=== PATIENT | male | born 1980 | race Caucasian/White ===

== ENCOUNTER 2020-03-02 11:12 | Emergency (ER) | payer MEDICAID ==
[~2020-03-02] VITALS: Ht 175.3 cm; Wt 98.0 kg
[2020-03-02 15:08] LABS: METHADONE URINE SCREEN NEGATIVE (NEGATIVE)
[2020-03-02 15:09] LABS: *AMPHETAMINES SCREEN URINE NEGATIVE (NEGATIVE); *BARBITURATES SCREEN URINE NEGATIVE (NEGATIVE); *COCAINE SCREEN URINE NEGATIVE (NEGATIVE); CANNABINOID URINE SCREEN NEGATIVE (NEGATIVE); OPIATES URINE SCREEN NEGATIVE (NEGATIVE); PHENCYCLIDINE URINE SCREEN NEGATIVE (NEGATIVE)
[2020-03-02 15:10] LABS: *BENZODIAZEPINES SCREEN URINE NEGATIVE (NEGATIVE)
[2020-03-02 16:11] VITALS: BP 118/68
== END 2020-03-02 16:10 | disposition home or self-care (01) ==
LOC: ER 11:12
DX: Z00.00 Encounter for general adult medical examination without abnormal findings (principal); F31.9 Bipolar disorder, unspecified; F20.9 Schizophrenia, unspecified
CPT/HCPCS: 80305; 99285